=== PATIENT | male | born 1995 | race Two or more races ===

== ENCOUNTER 2018-09-21 09:58 | Emergency (ER) | payer OTHER, BC ==
[~2018-09-21] VITALS: Ht 165.1 cm; Wt 56.7 kg
[2018-09-21 10:08] VITALS: BP 124/76
== END 2018-09-21 11:22 | disposition home or self-care (01) ==
LOC: ER 10:00
DX: S51.032A Puncture wound without foreign body of left elbow, initial encounter (principal); S70.212A Abrasion, left hip, initial encounter; F17.210 Nicotine dependence, cigarettes, uncomplicated; F12.10 Cannabis abuse, uncomplicated; V28.0XXA Motorcycle driver injured in noncollision transport accident in nontraffic accident, initial encounter; Y93.89 Activity, other specified; Y99.8 Other external cause status; Y92.89 Other specified places as the place of occurrence of the external cause
CPT/HCPCS: 73080